=== PATIENT | female | born 1940 | race Caucasian/White ===

== ENCOUNTER 2019-08-17 17:34 | Emergency (ER) | payer OTHER ==
[~2019-08-17] VITALS: Ht 154.9 cm; Wt 59.9 kg
[2019-08-17] MEDS ORDERED: HYZAAR 100-251 EACH PO (17:45)
[2019-08-17] MEDS ORDERED: FLUOXETINE DR90 MG (17:46)
== END 2019-08-17 20:43 | disposition home or self-care (01) ==
LOC: ER 17:34
DX: S82.61XA Displaced fracture of lateral malleolus of right fibula, initial encounter for closed fracture (principal); W18.09XA Striking against other object with subsequent fall, initial encounter; Y93.89 Activity, other specified; Y92.89 Other specified places as the place of occurrence of the external cause; Y99.8 Other external cause status